=== PATIENT | male | born 1955 ===

== ENCOUNTER → 2023-06-30 09:39 | Outpatient (BNVA) | payer MEDICARE, BC, SELFPAY | PROVIDERS: PCP Family Medicine; Referring Provider Family Medicine; Visit Provider Student in an Organized Health Care Education/Training Program | DX: J45.909 Unspecified asthma, uncomplicated (principal) | CPT/HCPCS: 99214 ==

== ENCOUNTER → 2024-06-29 09:30 | Outpatient (BNVA) | payer MEDICARE, BC, SELFPAY | PROVIDERS: PCP Family Medicine; Referring Provider Family Medicine; Visit Provider Physician Assistant Surgical | DX: J45.909 Unspecified asthma, uncomplicated (principal) | CPT/HCPCS: 99214 ==

== ENCOUNTER → 2025-07-05 09:59 | Outpatient (BNVA) | payer MEDICARE, BC, SELFPAY | PROVIDERS: PCP Family Medicine; Referring Provider Family Medicine; Visit Provider Physician Assistant Surgical | DX: J45.909 Unspecified asthma, uncomplicated (principal); Z87.891 Personal history of nicotine dependence | CPT/HCPCS: 99214 ==